=== PATIENT | female | born 1970 | race Caucasian/White ===

== ENCOUNTER 2017-11-28 15:47 | Observation (INO) | payer OTHER ==
[2017-11-28 16:25] LABS: #Lymphocytes 0.6 thou/uL (1.20-3.40); #Monocytes 0.3 thou/uL (0.11-0.59); #Neutrophils 6.5 thou/uL (1.40-6.50); %Basophils 0.5 % (0.0-1.0); %Eosinophils 0.6 % (0.0-10.0); %Lymphocytes 8.2 % (21.0-51.0); %Monocytes 3.7 % (0.0-10.0); %Neutrophils 87.1 % (42.0-75.0); Hemoglobin 10.9 g/dL (12.0-16.0); Mean Corpuscular HGB CONC 31.6 g/dL (32.0-36.0); Mean Corpuscular Hemoglobin 25.5 pg (27.0-31.0); Mean Corpuscular Volume 80.6 fl (81.0-99.0); Mean Platelet Volume 6.7 fL (7.4-10.4); Platelet Count 270 thou/uL (130-400); RBC Distribution Width 17.3 % (11.5-14.5); White Blood Cell (WBC) Count 7.5 thou/uL (4.8-10.8)
[2017-11-28 16:32] LABS: BHCG - Serum Negative (NEGATIVE); Pregs Control Background? CLEAR/WHITE (CLR/WHITE); Pregs Control Bar Appear? YES (CONTROL BAR)
[2017-11-28] MEDS ORDERED: Famotidine/PF 20 mg/2ml Vial ONE (16:32)
[2017-11-28] MEDS ORDERED: Fentanyl 100 MCG/2 ML VIAL ONE ×2 (16:32→18:03)
[2017-11-28] MEDS ORDERED: Ondansetron HCl/PF 4 MG/2 ML Vial ONE ×2 (16:33→18:03)
[2017-11-28 16:42] LABS: ALT (SGPT) 21 U/L (8-55); AST (SGOT) 25 U/L (5-34); Albumin 4.5 g/dL (3.5-5.0); Alkaline Phosphatase 102 U/L (40-150); Anion Gap 14 mmol/L (10-20); BUN (Urea Nitrogen) 8 mg/dL (7.0-18.7); Bilirubin, Total 0.7 mg/dL (0.2-1.2); Calc. Creatinine Clearance 0 mL/min (70-130); Carbon Dioxide 24 mmol/L (22-29); Chloride 103 mmol/L (98-107); Estimated GFR-MDRD 79; Globulin 3.2 g/dL (2.4-3.5); Glucose 94 mg/dL (70-105); Lipase 24 U/L (8-78); Potassium 3.7 mmol/L (3.5-5.1); Protein, Total 7.7 g/dL (6.0-8.3); Sodium 137 mmol/L (136-145)
--- NOTE | 2017-11-28 17:48 | CT ---
CT ABDOMEN NONCONTRAST CT PELVIS NONCONTRAST: (urolithiasis protocol) DATE: 11-28-17 HISTORY: 47-year-old female with left upper quadrant abdominal pain. COMPARISON: 12-13-16 TECHNIQUE: IV injection of iodinated contrast media: none Oral contrast media: none FINDINGS: Other than for urolithiasis, the lack of IV and oral contrast limits the evaluation. The lung bases are clear. There is a small amount of free fluid in the cul-de-sac in the pelvis, whic h is probably physiologic if the patient is premenaupausal. This is similar to the previous CT. There are no renal, ureteral, or bladder calculi. No fat stranding around the appendix. No renal, ureteral , or bladder calculi. Within the limitations of a noncontrast CT, no abnormality is identified involv ing the kidneys, abdominal aorta, urinary bladder, pancreas, adrenals, liver, or spleen. No signs of acute colonic diverticulitis. No pneumoperitoneum. Cholecystectomy clips. There is a new finding of a 4.5 x 3.5 x 3 cm cystic structure in the right adnexa. IMPRESSION: 1. No urolithiasis or obstructive uropathy. 2. 4.5 cm right adnexal cyst. Recommend follow up pelvic and transvaginal ultrasound in 6 weeks (at a different phase in the menstrual cycle). 3. Status post cholecystectomy. MARIA DEL ROSARIO Jack POS: SARAH
[2017-11-28 17:55] LABS: Bilirubin Negative (Negative); Blood, Urine Negative (Negative); Clarity Clear (Clear); Glucose, Urine (Dipstick) Negative (Negative); Leukocyte Negative (Negative); Nitrite Negative (Negative); Protein, Urine (Dipstick) Negative (Neg-Trace); Urobilinogen 0.2 mg/dL (0.2-1.0); pH, Urine 7.5 (5.0-9.0)
[2017-11-28] MEDS ORDERED: diphenhydrAMINE 50 MG/ML VIAL ONE (19:45)
[2017-11-28] MEDS ORDERED: Pantoprazole 40 MG VIAL ONE (19:45)
[2017-11-28] MEDS ORDERED: Metoclopramide HCl 10 MG/2 ML VIAL ONE (20:04)
--- NOTE | 2017-11-28 20:28 | ULT ---
ULTRASOUND PELVIC ULTRASOUND TRANSVAGINAL DOPPLER DUPLEX: HISTORY: 47-year-old female with generalized abdominal and pelvic pain (mostly left upper quadrant abdominal p ain). Large right adnexal cyst found on CT. Rule out ovarian torsion. TECHNIQUE: Transabdominal transducer used to evaluate intrapelvic contents using the urinary bladder as an acous tic window. Endovaginal transducer used to visualize intrapelvic contents in greater detail. Color fl ow Doppler and Pulsed Doppler spectral waveform analysis of ovaries. FINDINGS: Uterus: 9.5 x 5 x 5.6 cm Endometrial stripe: 0.7 cm (7 mm) Right ovary: 5.5 x 3 x 3.5 cm Left ovary: 2.5 x 1.5 x 1.5 cm Uterine leiomyoma (fibroid): Two, one anteriorly and one posteriorly. The posterior one is larger, me asuring approximately 3 x 2.5 x 2.5 cm. Blood flow in both ovaries: Arterial and venous flow demonstrated in both ovaries. Ovarian cyst (defined as 2 cm or greater): Right ovarian cyst measured as 3 x 3.5 x 2.5 cm. (However, the CT demonstrated this cyst to be 4.5 cm in greatest dimension). Free fluid in the cul-de-sac: Minimal in the cul-de-sac. IMPRESSION: 1. Moderately large right ovarian cyst. 2. Blood flow demonstrated in both ovaries by doppler (which does not necessarily rule out low grade or intermittent torsion). Clinical correlation is recommended. 3. At least 2 uterine leiomyomata. MARIA DEL ROSARIO Jack POS: SARAH
[2017-11-28] MEDS ORDERED: Ondansetron HCl/PF 4 MG/2 ML Vial IVP PRN (21:55)
[2017-11-28] MEDS ORDERED: Ondansetron ODT 4 MG TAB SL PRN (21:55)
[2017-11-28 22:17] VITALS: BMI 26.1
[2017-11-28] MEDS: Sodium Chloride 0.9% 1,000 ML IV SCH (22:57)
[2017-11-28] MEDS ORDERED: Fentanyl 100 MCG/2 ML VIAL SLOW IVP PRN (23:32)
[2017-11-29 00:21] LABS: Troponin I Less than 0.010 ng/mL (< 0.028)
[2017-11-29] MEDS: Acetaminophen 325 MG TAB PO PRN ×3 (03:00→19:24)
[2017-11-29 08:38] LABS: Troponin I Less than 0.010 ng/mL (< 0.028)
[2017-11-29] MEDS: Sodium Chloride 0.9% 1,000 ML IV SCH ×2 (08:56→15:30)
[2017-11-29] MEDS ORDERED: Pantoprazole 40 MG VIAL IVP SCH (09:00)
--- NOTE | 2017-11-29 12:28 | OP ---
DATE OF PROCEDURE: 11/29/2017 PROCEDURE: Esophagogastroduodenoscopy. PREOPERATIVE DIAGNOSIS: Epigastric pain in the setting of chronic VELAZCO-2 inhibitor use and steroids. OPERATIVE NOTE: Informed consent was obtained from the patient. She was sedated with total intraven ous anesthesia. The bite block was placed and the endoscope was advanced easily to the second portio n of the duodenum and retroflexion was performed in the stomach. The esophagus was normal. The Z-li ne appeared normal. There was a small 1 cm hiatal hernia. The stomach was normal including retrofle xed views. The pylorus and first and second portions of the duodenum were normal. IMPRESSION: 1. Small 1 cm hiatal hernia. 2. Otherwise normal esophagogastroduodenoscopy. RECOMMENDATIONS: 1. Continue proton pump inhibitor for now. 2. Advance her diet. 3. If the pain worsens again, then plan CT of the abdomen and pelvis with contrast. 4. Monitor for recurrent similar symptoms after her next dose of methotrexate.
--- NOTE | 2017-11-29 12:30 | CON ---
DATE OF CONSULTATION: 11/29/2017 GASTROENTEROLOGY CONSULTATION NOTE CHIEF COMPLAINT: Abdominal pain. HISTORY OF PRESENT ILLNESS: Ms. Tang is a 47-year-old woman who woke up at 3:00 yesterday morning with acute onset burning the cramping epigastric to left upper quadrant abdominal pain. She did hav e several episodes of nausea and vomiting, but no obvious hematemesis. She has had no black stools o r red stools. She did have an episode of diarrhea yesterday, but this has not been an ongoing issue. The pain persists in the epigastric region; however, this has improved over the last day. She had a similar episode of pain she reported last year. She currently attributes that to having been on Im uran; however, review of the notes by Dr. Lal from 11/2016 indicates that her pain was improving at that time with avoidance of Celebrex and with treatment with proton pump inhibitor. She has since b een started on meloxicam and prednisolone. More recently, about a month ago, she started taking meth otrexate. She took the methotrexate on Tuesday, which was the day before the onset of her symptoms wh en she woke up again Tuesday morning early. On presentation to the ER, she had blood work done which revealed a normal white blood cell count and normal liver tests and normal lipase. She had a CT scan performed without contrast which was negative. Her weight has been stable. She did see Dr. Horn for some chest pain. She has had some shortness of breath from walking about a block. PET scan was recommended by Dr. Horn, but her insurance did not cover this apparently. PAST MEDICAL HISTORY: Lupus and chronic iron deficiency anemia. She underwent EGD and colonoscopy angi Lal in 10/2016. The EGD showed some mild gastritis. Biopsies were unremarkable. An irregul ar Z-line was noted and biopsies did show some possible focal metaplasia but obvious franc Alvarez's was not identified endoscopically. Duodenal biopsies were normal. The colonoscopy revealed small in ternal hemorrhoids, but otherwise was normal to the terminal ileum. She underwent capsule endoscopy on 01/31/2017 which revealed normal small bowel mucosa. Hypertension, hypothyroidism, ovarian cyst, and kidney stones. PAST SURGICAL HISTORY: Cholecystectomy, upper and lower endoscopy, back surgery. FAMILY HISTORY: Positive for stomach cancer in her great-grandmother. SOCIAL HISTORY: No alcohol, tobacco or drugs. ALLERGIES: AZATHIOPRINE, BUTORPHANOL, CODEINE, JEFFERY, KETOROLAC, MEPERIDINE, MORPHINE, COMPAZINE, P ROMETHAZINE, SECOBARBITAL, and IV IRON. MEDICATIONS: At home prior to admission, hydroxychloroquine, folic acid, meloxicam 7.5 mg twice moose y, levothyroxine, methotrexate 15 mg weekly, methylprednisolone 4 mg daily, and leucovorin. REVIEW OF SYSTEMS: Negative x10 systems reviewed except as stated in history of present illness. Kathy johnson does have joint pain in her hands and back. PHYSICAL EXAMINATION: VITAL SIGNS: Temperature 99.2, pulse 68, blood pressure 107/57. GENERAL: She is in no acute distress, alert and oriented x3. HEENT: Eyes have no scleral icterus. Oropharynx is clear, without lesions. NECK: No cervical or supraclavicular lymphadenopathy. LUNGS: Clear to auscultation bilaterally. HEART: Regular rate and rhythm without murmur. ABDOMEN: Soft. She is tender in the epigastric region without guarding. Bowel sounds are present. EXTREMITIES: No lower extremity edema. NEUROLOGIC: Cranial nerves are grossly intact. LABORATORY DATA: Creatinine 0.78, bilirubin 0.7, AST 25, ALT 21, alkaline phosphatase 102, albumin 4 .5, lipase 24. White blood cell count 7.5, hemoglobin 10.9, MCV 80.6, platelets 270. IMPRESSION: 1. Acute onset epigastric pain associated with nausea and vomiting yesterday and one episode of diar alfonso yesterday. An infectious gastroenteritis is possible given nausea and vomiting, and diarrhea. These symptoms are similar to the symptoms she had last year which she attributed to azathioprine. S he just started methotrexate a month ago and she took the methotrexate the day before the onset of sy mptoms. She is concerned that the methotrexate could be a source for these symptoms as well. 2. Given the chronic use of Anderson 2 inhibitor and prednisolone, peptic ulcer needs to be ruled out. S he did have a CT scan on presentation; however, this was without contrast and if the pain persists, daylin johnson may need to repeat a CT. Her lipase is normal. Her white blood cell count is normal and her LFTs are normal. She has had a prior cholecystectomy. 3. History of chronic iron deficiency anemia. The EGD and colonoscopy including duodenal biopsies a nd gastric biopsies were negative last year. Small bowel capsule endoscopy was negative last year. 4. Irregular Z-line with biopsies showing some focal metaplasia. We will evaluate for obvious signs of Alvarez's today and rebiopsy if indicated. RECOMMENDATIONS: 1. EGD. 2. Proton pump inhibitor. 3. Further workup pending endoscopic findings.
[2017-11-29] MEDS ORDERED: Ondansetron HCl/PF 4 MG/2 ML Vial IVP PRN (14:07)
[2017-11-29] MEDS ORDERED: HYDROcodone/Acetaminophen 5/325 mg Tablet PO PRN (14:07)
[2017-11-29] MEDS ORDERED: methylPREDNISolone 4 mg Tablet PO PRN (14:18)
[2017-11-29] MEDS ORDERED: Lidocaine 1% PF 5 ML VIAL ONE (14:53)
[2017-11-29] MEDS ORDERED: Propofol 200 MG/20 ML VIAL ONE (14:53)
--- NOTE | 2017-11-29 15:05 | HP ---
DATE OF ADMISSION: 11/29/2017 CHIEF COMPLAINT: Abdominal pain. HISTORY OF PRESENT ILLNESS: This is a 47-year-old young white female with a known history of systemi c lupus erythematosus diagnosed a few months ago and was started on Plaquenil by her primary care jose beal, the patient also had a severe vaginal bleeding in September and she was seen by a sas developer analyst, Dr. Tran who started her on estrogen medication initially and her period stopped since then and she did not have any periods. Last night, early in the morning around 3:00 a.m. she woke up with severe abdominal pain in the mid epigastrium and also in the lower abdomen associated with severe nausea and vomiting. The patient was unable to swallow. Patient was unable to keep down any fluids. So, GI w as consulted who did the EGD looking for any evidence of upper GI problem, but did not show any evide nce of ulcers or any bleeding was noted. The patient was seen on the floor, she was alert and orient ed, but was in severe pain of 8 on 10 intensity in the mid epigastrium and also in the lower abdomen. She also complains of cramps in the right loin area and was tender on palpation. She had a CT of t he abdomen and pelvis which showed evidence of 4.5 cm adnexal mass and also had a pelvic ultrasound d one in the ER which did confirm the adnexal mass at right ovarian cyst of the largest dimension being 4.5 cm. She also had a leiomyomata which are fibroids on the uterus. PAST MEDICAL HISTORY: 1. Systemic lupus erythematosus. 2. History of anemia. PAST SURGICAL HISTORY: The patient had cholecystectomy in the past. SOCIAL HISTORY: The patient is a nonsmoker. No history of alcohol, no history of illicit drug use. REVIEW OF SYSTEMS: All 12 systems reviewed with the patient thoroughly and found to be negative at t his time except what is described in HPI. Constitutional: Weight loss or gain, sense of well-being, ability to conduct usual activities, exerc ise tolerance. Skin/Breast: Rash, itching, changes in hair growth or loss, nail changes, breast lum ps, tenderness, swelling, nipple discharge. Eyes: Vision, double vision, tearing, blind spots, pain . ENT/Mouth: Headaches (location, time of onset, duration, precipitating factors), vertigo, lighthe adedness, injury. Vision, double vision, tearing, blind spots, pain, nose bleeding, colds, obstructio n, discharge, dental difficulties, gingival bleeding, dentures, neck stiffness, pain, tenderness, mas ses in thyroid or other areas. Cardiovascular: Precordial pain, substernal distress, palpitations, syncope, dyspnea on exertion, orthopnea, nocturnal paroxysmal dyspnea, edema, cyanosis, hypertension, heart murmurs, varicosities, phlebitis, claudication. Respiratory: Pain, shortness of breath, whee zing, stridor, cough, hemoptysis, fever or night sweats. Gastrointestinal: Poor appetite, dysphagia , indigestion, abdominal pain, heartburn, eructation, nausea, vomiting, hematemesis, jaundice, consti pation, or diarrhea, abnormal stools (iram-colored, tarry, bloody, greasy, foul smelling), flatulence , hemorrhoids, recent changes in bowel habits. Genitourinary: Urgency, frequency, dysuria, nocturia , hematuria, polyuria, oliguria, unusual (or change in) color of urine, stones, hesitancy, change in size of stream, dribbling, acute retention or incontinence, libido, potency. Musculoskeletal: Pain, swelling, redness or heat of muscles or joints, limitation, of motion, muscular weakness, atrophy, c ramps. Neurologic/Psychiatric: Convulsions, paralyses, tremor, incoordination, paresthesias, diffic ulties with memory of speech, sensory or motor disturbances, or muscular coordination (ataxia, tremor ), emotional problems, anxiety, depression, previous psychiatric care, unusual perceptions, hallucina tions. Allergy/Immunologic: Skin rash, anemia, bleeding tendency, polydipsia, polyuria, intolerance to heat or cold. ALLERGIES: AZATHIOPRINE, BUTORPHANOL, CODEINE, JEFFERY and KETOROLAC. HOME MEDICATIONS: 1. Folic acid 1 mg p.o. b.i.d. 2. Hydroxychloroquine 200 mg p.o. b.i.d. 3. Leucovorin 5 mg. 4. Levothyroxine 150 mcg p.o. daily. 5. Meloxicam 7.5 mg p.o. b.i.d. 6. Methotrexate 15 mg p.o. daily. 7. Methylprednisolone 4 mg p.o. daily. PHYSICAL EXAMINATION: VITAL SIGNS: Blood pressure is 119/59, heart rate is 67, respiratory rate 18, saturation 98%. GENERAL: The patient is moderately built, moderately nourished. She appears to be in acute distress with abdominal pain. Otherwise, she is alert and oriented. HEENT: Atraumatic, normocephalic, PERRLA. Extraocular muscles were intact. Oropharynx is pink and moist. CARDIOVASCULAR: S1, S2 normal. No murmurs, rubs or gallops. LUNGS: Bilateral air entry was equal. No wheezing, no crackles. ABDOMEN: Soft, nontender, no guarding, no rebound tenderness. Bowel sounds normal. MUSCULOSKELETAL: No calf tenderness. No pedal edema, no joint tenderness, no joint swelling. SKIN: No sinus erythema, no rash, no pallor. NEUROLOGIC: Cranial examination II-XII intact. No focal deficits were noted. PSYCHIATRIC: No signs of suicidal ideation. No signs of shahla. LABORATORY DATA: WBC 7.5, hemoglobin is 10.1, hematocrit is 34.6, and platelets 270. Sodium 137, po tassium 3.7, chloride 103, bicarbonate is 24, BUN is 8, creatinine 0.78. IMAGING: Ultrasound of the abdomen was done showing evidence of right adnexal mass of 4.5 cm ovarian cyst, moderately enlarged size. CT of the abdomen did confirm a 4.5 cm adnexal mass. ASSESSMENT: 1. Acute right ovarian cyst pain, likely torsion. 2. History of systemic lupus erythematosus. 3. Intractable nausea and vomiting. 4. Moderate dehydration. 5. History of fibroid uterus. PLAN: 1. The plan is to consult LONG TERM CARE PHARMACIST hospitalist at this time for further evaluation of her right adnexa l mass. Patient's pain is uncontrollable and she is 7 out of 10 intensity pain and unable to keep an ything down. At this time, she is very dehydrated. We will continue the patient with normal saline at 75 mL an hour and controlled the pain with Mcgrady. The patient has multiple drug allergies includi ng MORPHINE and TORADOL, so unable to give her pain medications at this time. 2. The patient had an EGD, did not show any evidence of ulcers. According to the nurse, we will cece t for the GI report. We will start the patient on Carafate 1 gram p.o. daily. Patient is on oral st eroids and also NSAIDs as possibly could have her gastritis contributing to the epigastric pain. 3. The patient has history of systemic lupus, we will continue the patient on hydroxychloroquine and methotrexate in her usual home dose. 4. The patient is moderately dehydrated. We will continue the fluids as stated above. 5. DVT prophylaxis with Lovenox 40 mg subcutaneously. I spent 75 minutes with this patient.
[2017-11-29] MEDS: Sucralfate 1 GM TAB PO SCH ×2 (16:37→20:26)
[2017-11-29] MEDS: Metoclopramide HCl 10 MG/2 ML VIAL IVP PRN (18:21)
[2017-11-29] MEDS: Meloxicam 7.5 MG TAB PO SCH (20:26)
[2017-11-29] MEDS: Hydroxychloroquine Sulfate 200 MG TAB PO SCH (20:26)
[2017-11-29] MEDS: Folic Acid 1 MG TAB PO SCH (20:26)
[2017-11-29] MEDS ORDERED: Cyclobenzaprine 10 MG TAB PO PRN (21:39)
[2017-11-29] MEDS: Famotidine 40 MG/4 ML VIAL SLOW IVP SCH (21:53)
--- NOTE | 2017-11-29 23:12 | CON ---
DATE OF CONSULTATION: 11/29/2017 TIME OF SERVICE: 04:30 p.m. CONSULTING PHYSICIAN: Dr. Rashard Weir, internal medicine. CHIEF COMPLAINT: Abdominal pain. HISTORY OF PRESENT ILLNESS: This is a 47-year-old female who presented to the emergency department with a sudden onset of epigastric and left upper quadrant pain starting at 3 in the morning. She had associated nausea and vomiting and was admitted to the hospital. She had an EGD, which was essentially negative. After CT scan was performed and showed a 4-cm left adnexal mass, transvaginal ultrasound was performed. This confirmed approximately 3-cm left ovarian cyst. Both ovaries showed good blood flow. However, since pain, she was experiencing could not be explained by her EGD, BARK SC[facility]ER was consulted. Patient reports a history of regular monthly cycles up until August, at which time, she had a prolonged cycle. She saw Dr. Tran in September who put her on medication make her stop bleeding and she has not had a period since. She reports that her pain is much improved since her admission; however, she still has some lower abdominal crampiness. She has not received any IV narcotics due to allergies, but reported her pain significantly improved with the use of Reglan, Benadryl, and Zofran. She denies any changes in bowel habits or urination. REVIEW OF SYSTEMS: Negative for head, eyes, ears, nose, throat, cardiovascular , respiratory, GI, , neuro, psych, musculoskeletal, skin, or constitutional symptoms other than mentioned above. PAST MEDICAL HISTORY: 1. Systemic lupus erythematosus, diagnosed about a year ago. 2. History of anemia. PAST SURGICAL HISTORY: 1. Cholecystectomy. 2. Hand surgery. 3. Leg surgery. MEDICATIONS: Reviewed. ALLERGIES: 1. AZATHIOPRINE. 2. BUTORPHANOL. 3. CODEINE causes itching. 4. JEFFERY causes itchy mouth. 5. TORADOL causes nausea and vomiting. 6. DEMEROL causes anaphylaxis. 7. MORPHINE causes anaphylaxis. 8. COMPAZINE causes nausea and vomiting. 9. PHENERGAN causes nausea and vomiting. 10. SECOBARBITAL causes oversedation. 11. IV IRON caused shortness of breath, coughing, flushing, nausea, vomiting. SOCIAL HISTORY: Negative for tobacco, alcohol, or drug abuse. FAMILY HISTORY: Noncontributory. PHYSICAL EXAMINATION: VITAL SIGNS: Temperature 98.9, pulse 70, respiratory rate 15, O2 saturation 100 % on room air, blood pressure 125/61. GENERAL: Awake, alert, in no acute distress, but appears uncomfortable. CHEST: Nonlabored breathing. ABDOMEN: Soft, nondistended. No guarding or rebound. No masses palpable. EXTREMITIES: No edema. IMAGING: Pelvic ultrasound revealed a right ovarian cyst measuring 3 x 3.5 x 2.5 cm. Arterial and venous flow demonstrated in both ovaries. Two uterine fibroids. LABORATORY DATA: WBC 7.5, hemoglobin 10.9, hematocrit 34.6, platelets 270,000. Chemistry within normal limits. Urine within normal limits. ASSESSMENT AND PLAN: A 47-year-old with epigastric and left upper quadrant pain with an unknown cause. It was thought that it could be caused by her lupus medications, which I would lean towards at this point. The cyst in her ovary is not very large and is unlikely to be causing any kind of torsion. There is no acute indication for surgery. The patient can follow up in Dr. Tran clinic in 6 weeks for repeat ultrasound to look for resolution of her cyst. I explained all of this to the patient and she voiced understanding. SEAN
[2017-11-30] MEDS: Sodium Chloride 0.9% 1,000 ML IV SCH (02:22)
[2017-11-30] MEDS: Metoclopramide HCl 10 MG/2 ML VIAL IVP PRN (03:11)
[2017-11-30 04:55] LABS: #Eosinphils 0.1 thou/uL (0.0-0.7); #Lymphocytes 0.7 thou/uL (1.20-3.40); #Monocytes 0.4 thou/uL (0.11-0.59); #Neutrophils 1.9 thou/uL (1.40-6.50); %Basophils 0.7 % (0.0-1.0); %Eosinophils 1.7 % (0.0-10.0); %Lymphocytes 23.8 % (21.0-51.0); %Monocytes 12.1 % (0.0-10.0); %Neutrophils 61.7 % (42.0-75.0); Hemoglobin 9.5 g/dL (12.0-16.0); Mean Corpuscular HGB CONC 32.7 g/dL (32.0-36.0); Mean Corpuscular Hemoglobin 27.8 pg (27.0-31.0); Mean Platelet Volume 6.6 fL (7.4-10.4); Platelet Count 213 thou/uL (130-400); RBC Distribution Width 16.9 % (11.5-14.5); White Blood Cell (WBC) Count 3.1 thou/uL (4.8-10.8)
[2017-11-30 04:56] LABS: Anion Gap 8 mmol/L (10-20); BUN (Urea Nitrogen) 7 mg/dL (7.0-18.7); Calc. Creatinine Clearance 141 mL/min (70-130); Calcium 8.2 mg/dL (7.8-10.44); Carbon Dioxide 25 mmol/L (22-29); Chloride 107 mmol/L (98-107); Estimated GFR-MDRD 90; Glucose 104 mg/dL (70-105); Potassium 3.8 mmol/L (3.5-5.1); Sodium 136 mmol/L (136-145)
[2017-11-30] MEDS ORDERED: Levothyroxine 150 MCG TAB PO SCH (06:00)
[2017-11-30] MEDS ORDERED: Enoxaparin Sodium 40 MG/0.4 ML SYRINGE SC SCH (09:00)
[2017-11-30] MEDS: Hydroxychloroquine Sulfate 200 MG TAB PO SCH (09:21)
[2017-11-30] MEDS: Meloxicam 7.5 MG TAB PO SCH (09:21)
[2017-11-30] MEDS: Folic Acid 1 MG TAB PO SCH (09:21)
[2017-11-30] MEDS: Famotidine 40 MG/4 ML VIAL SLOW IVP SCH (09:26)
[2017-11-30] MEDS: Acetaminophen 325 MG TAB PO PRN (09:26)
[2017-11-30] MEDS: Sucralfate 1 GM TAB PO SCH ×2 (09:26→12:51)
--- NOTE | 2017-11-30 14:05 | DIS ---
DATE OF ADMISSION: 11/29/2017 DATE OF DISCHARGE: 11/30/2017 ADMITTING DIAGNOSES: Intractable nausea and vomiting. DISCHARGE DIAGNOSES: Intractable nausea and vomiting. SECONDARY DIAGNOSES: 1. Possible acute gastritis. 2. History of systemic lupus erythematosus. 3. Right ovarian cyst. 4. Moderate dehydration. 5. Fibroid uterus. CONSULTANTS INVOLVED IN THIS CARE: Gynecology, Dr. Coby Davis and GI, Dr. Alfred Suarez. HISTORY OF PRESENT ILLNESS AND HOSPITAL COURSE: In brief, this is a 47-year-old white female who has a known history of systemic lupus erythematosus, on prednisolone and methotrexate. The patient comp lained of sudden onset of abdominal pain for the past few days associated with severe nausea and vomi ting. The patient was initially seen by GI for intractable nausea and vomiting, and EGD did not show any evidence of gastric erosions, but there was evidence of possible gastritis. The patient was adv ised to be continued on Protonix and the patient was started on Carafate, which did help her pain acc ording to her. The patient was also having lower abdominal pain and cramps and a CT of abdomen and p juan jose showed evidence of a right ovarian cyst, which was 4.5 cm, so Gynecology Hospitalist was patience cervantes who reassured the patient and advised to follow up with Dr. Tran in 1-2 weeks. The patient's stephanie n was controlled on the day of discharge; she was well hydrated and was discharged home in stable con dition. PHYSICAL EXAMINATION: On date of discharge: VITAL SIGNS: Blood pressures are 107/59, heart rate is 76, respirations 18 and saturation 99%. GENERAL: The patient is moderately built and moderately nourished. CARDIOVASCULAR: S1 and S2 normal. No murmurs, rubs or gallops. LUNGS: Bilateral air entry was equal. No wheezing, no crackles. ABDOMEN: Soft and nontender. No guarding, no rebound tenderness. Bowel sounds normal. MUSCULOSKELETAL: No calf tenderness. No pedal edema. No joint tenderness. No joint swelling. SKIN: No cyanosis, no erythema, no rash, no pallor. CENTRAL NERVOUS SYSTEM: Cranial nerve examination II-XII intact. No focal deficits were noted. LABORATORY DATA: WBC is 3.1, hemoglobin is 9.5 and hematocrit is 28.9. Sodium is 136, potassium 3.8 , chloride is 107, bicarbonate is 25, BUN is 7 and creatinine 0.7. HOME MEDICATIONS: Folic acid 1 mg p.o. b.i.d., hydroxychloroquine 200 mg p.o. b.i.d. leucovorin 5 mg p.o. daily, levothyroxine 150 mg p.o. daily, meloxicam 7.5 mg p.o. b.i.d., methotrexate 50 mg p.o. d aily and methylprednisolone 4 mg p.o. daily. NEW MEDICATIONS: Carafate 1 gram p.o. before meals and at bedtime. DISCHARGE INSTRUCTIONS: 1. Continue with the above medications. 2. Advised to take meloxicam and prednisolone with food to avoid gastritis. 3. The patient was advised to follow up with Dr. Tran in 1-2 weeks to follow up on the right ovarian cyst. 4. Continue the general diet. I spent 35 minutes with this patient.
[2017-11-30 14:12] VITALS: BP 107/59; TEMP 98.7
[2017-12-04] MEDS ORDERED: Methotrexate Sodium 2.5 MG TAB PO SCH (21:00)
[2017-12-05] MEDS ORDERED: Leucovorin Calcium 5 MG TAB PO SCH (21:00)
== END 2017-11-30 13:58 | disposition home or self-care (01) ==
LOC: SCSER 15:47 → 2SW 21:11
PROVIDERS: ADMIT Internal Medicine Infectious Disease; ATTEND Internal Medicine Infectious Disease
PROC: 0DJ08ZZ Inspection of Upper Intestinal Tract, Via Natural or Artificial Opening Endoscopic (ICD-10-PCS; principal; 2017-11-29)
DX: R10.13 Epigastric pain (principal); K44.9 Diaphragmatic hernia without obstruction or gangrene; M32.9 Systemic lupus erythematosus, unspecified; D50.9 Iron deficiency anemia, unspecified; I10 Essential (primary) hypertension; E03.9 Hypothyroidism, unspecified; E86.0 Dehydration; R11.2 Nausea with vomiting, unspecified; N83.201 Unspecified ovarian cyst, right side; D25.9 Leiomyoma of uterus, unspecified; Z79.1 Long term (current) use of non-steroidal anti-inflammatories (NSAID); Z79.52 Long term (current) use of systemic steroids; Z79.899 Other long term (current) drug therapy; Z88.5 Allergy status to narcotic agent; Z88.8 Allergy status to other drugs, medicaments and biological substances; Z91.018 Allergy to other foods; Z90.49 Acquired absence of other specified parts of digestive tract; Z98.890 Other specified postprocedural states; Z87.442 Personal history of urinary calculi
CPT/HCPCS: 36415; 74176; 76856; 80048; 80053; 81003; 83605; 83690; 84484; 84703; 85025; 96361; 96365; 96375; 96376; C9113; G0378; J1200; J1650; J2001; J2405; J2704; J2765; J3010; S0028

== ENCOUNTER 2018-08-31 13:32 | Day surgery (SDC) | payer OTHER ==
[2018-08-30 15:12] VITALS: BMI 25.0
[2018-08-31] MEDS ORDERED: PROPOFOL 200 MG/20 ML VIAL ONE (16:35)
--- NOTE | 2018-08-31 22:41 | OP ---
DATE OF PROCEDURE: 08/31/2018 TITLE OF PROCEDURE: Esophagogastroduodenoscopy with biopsy. PREPROCEDURE DIAGNOSES: 1. Intractable recurring epigastric pain. 2. History of hiatal hernia. POSTPROCEDURE DIAGNOSES: 1. Exam to second portion of duodenum. 2. Small sliding 2 cm hiatal hernia, biopsied. 3. Mild patchy erythema of the gastric body and antrum, biopsied. 4. Normal duodenum, biopsied. 5. No evidence of peptic ulcer disease. PROCEDURE IN DETAIL: Written informed consent was obtained. The patient was brought to the endoscopy suite. Total intravenous anesthesia was provided by Dr. Renato Campos. The patient was placed in the left lateral decubitus position. A bite block was inserted into the mouth. When adequate sedation was achieved, a Pentax video diagnostic gastroscope was introduced into the oral cavity and the esophagus was carefully intubated. The gastroscope was advanced under direct visualization to the second portion of the duodenum. Endoscopic findings revealed a small sliding hiatal hernia about 2 cm in length. There is no evidence of Alvarez's esophagus or esophageal ulcer. The Z-line at 37 cm was mildly irregular and biopsies were obtained for histology. The stomach was then entered and carefully examined. This included a retroflex view of the cardia and fundus. Mild patchy erythema was noted in the distal body and antrum. Biopsies were obtained for histology. No gastric ulcer was identified. The duodenum from the bulb to the second portion appeared grossly normal. Given her significant previous history, biopsies were obtained in the proximal duodenum for histology. The stomach was then decompressed. Thus, the endoscope was completely removed from the patient. She was transferred to the Day Stay Surgery Area for postprocedure monitoring. There were no immediate complications. RECOMMENDATIONS: 1. Await pathology results. 2. Ask the patient to call me in one week for pathology results. 3. Resume previous medications. 4. Low-fat diet. 5. We will speak to the patient about the trial of Levsin sublingual 0.125 mg p.o. q.4 hours p.r.n. abdominal pain. 6. We would also consider acid suppressive therapy for 4 to 6 weeks and we will discuss this with the patient prior to her discharge. Job ID: [id number]
== END 2018-08-31 16:31 | disposition home or self-care (01) ==
LOC: SDC 13:32
PROVIDERS: ATTEND Internal Medicine Gastroenterology
PROC: 0DB58ZX Excision of Esophagus, Via Natural or Artificial Opening Endoscopic, Diagnostic (ICD-10-PCS; principal; 2018-08-31)
PROC: 0DB68ZX Excision of Stomach, Via Natural or Artificial Opening Endoscopic, Diagnostic (ICD-10-PCS; principal; 2018-08-31)
PROC: 0DB98ZX Excision of Duodenum, Via Natural or Artificial Opening Endoscopic, Diagnostic (ICD-10-PCS; principal; 2018-08-31)
DX: K20.9 Esophagitis, unspecified (principal); K31.9 Disease of stomach and duodenum, unspecified; K44.9 Diaphragmatic hernia without obstruction or gangrene; Z88.5 Allergy status to narcotic agent; Z88.8 Allergy status to other drugs, medicaments and biological substances; Z91.018 Allergy to other foods; Z79.1 Long term (current) use of non-steroidal anti-inflammatories (NSAID); Z79.899 Other long term (current) drug therapy
CPT/HCPCS: 88305; 88312; 88313; J2704

== ENCOUNTER 2019-01-08 12:10 | Outpatient (CLI) | payer OTHER ==
--- NOTE | 2019-01-09 07:50 | MMO ---
Bilateral MAMMO Bilat Screen [facility]. CLINICAL HISTORY: Patient is 48 years old and is seen for screening. The patient has no family history of breast cancer. The patient has no personal history of cancer. VIEWS: The views performed were: bilateral craniocaudal with tomosynthesis and bilateral mediolateral oblique with tomosynthesis. FILMS COMPARED: The present examination has been compared to prior imaging studies performed at [facility] on 05/27/2008, 05/15/2010 and 05/10/2014. MAMMOGRAM FINDINGS: There are scattered fibroglandular densities. There are no suspicious masses, suspicious calcifications, or new areas of architectural distortion. IMPRESSION: THERE IS NO MAMMOGRAPHIC EVIDENCE OF MALIGNANCY. A ROUTINE FOLLOW-UP MAMMOGRAM IN 1 YEAR IS RECOMMENDED. THE RESULTS OF THIS EXAM WERE SENT TO THE PATIENT. ACR BI-RADS Category 1 - Negative MAMMOGRAPHY NOTE: 1. A negative mammogram report should not delay a biopsy if a dominant of clinically suspicious mass is present. 2. Approximately 10% to 15% of breast cancers are not detected by mammography. 3. Adenosis and dense breasts may obscure an underlying neoplasm.
== END 2019-01-08 12:11 | disposition home or self-care (01) ==
LOC: BICMAMMO 12:10
PROVIDERS: ATTEND Family Medicine
DX: Z12.31 Encounter for screening mammogram for malignant neoplasm of breast (principal)
CPT/HCPCS: 77063; 77067

== ENCOUNTER 2019-10-01 15:50 | Outpatient (CLI) | payer OTHER ==
--- NOTE | 2019-10-01 17:00 | MRI ---
MR OF THE RIGHT KNEE WITHOUT CONTRAST INDICATION: History of patellofemoral pain syndrome TECHNIQUE: Axial and coronal PD fat sat, sagittal T2 fat sat, sagittal PD turbo spin echo and T1 tan nal images were obtained of the right knee. COMPARISON: None. FINDINGS: Joint effusion: None. Semimembranosus-medial gastrocnemius popliteal cyst: None. Ligaments: The ACL, PCL, MCL and LCLC are intact. Extensor mechanism: Intact. Menisci: Intact. Articular cartilage: There is a 2 mm focus of full-thickness delamination involving the lateral cruz lar facet with underlying subchondral edema. There is a 2 mm near full-thickness articular cartilage fissure involving the median patellar ridge. There is moderate chondrosis involving the med ial patellar facet. There are small marginal osteophytes affecting the major compartments of the right knee. There is mild diffuse chondrosis involving the femoral tibial compartments without eviden ce of a focal full-thickness defect. Osseous structures: Normal marrow signal. Popliteus and IT band: Normal. IMPRESSION: 1. 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 2. The menisci are intact. 3. The ACL, PCL, MCL and lateral collateral ligaments are intact.
== END 2019-10-01 15:51 | disposition home or self-care (01) ==
LOC: SCSMRI 15:50
PROVIDERS: ATTEND Orthopaedic Surgery
DX: M22.2X1 Patellofemoral disorders, right knee (principal); M17.11 Unilateral primary osteoarthritis, right knee

== ENCOUNTER 2019-12-10 12:39 | Outpatient (CLI) | payer OTHER ==
--- NOTE | 2019-12-10 14:46 | CT ---
CT ABDOMEN AND PELVIS WITHOUT CONTRAST: Date: 12/10/2019 COMPARISON: 12/13/2016. HISTORY: Left flank pain. History of kidney stones. TECHNIQUE: Multiple contiguous axial images were obtained in a CT of the abdomen and pelvis without contrast. Sa gittal and coronal reformats were performed. FINDINGS: The patient is status post cholecystectomy. No calcifications seen in either kidney or ureter. Phlebo liths are seen in the pelvis that are external to the ureters. The liver, adrenal glands, spleen, and pancreas are unremarkable, although evaluation is limited with out IV contrast. There is a small amount of free fluid and stranding change in the pelvis. The uterus has been removed . This stranding change is surrounding the sigmoid colon. No obvious diverticula are seen in the colo n. The small bowel is normal in caliber. The appendix is normal. No abdominal or pelvic lymphadenopathy seen. The osseous structures and visualized inferior thorax ar e unremarkable. IMPRESSION: There is subtle inflammatory change surrounding the sigmoid colon. This is nonspecific. This could re present an infectious colitis or inflammatory colitis. POS: [facility]
== END 2019-12-10 12:40 | disposition home or self-care (01) ==
LOC: BICCT 12:39
PROVIDERS: ATTEND Urology
DX: N20.0 Calculus of kidney (principal); K63.89 Other specified diseases of intestine
CPT/HCPCS: 36415; 74176; 80048; 81001; 85025

== ENCOUNTER 2019-12-26 12:25 | Outpatient (CLI) | payer OTHER ==
--- NOTE | 2019-12-26 16:32 | MRI ---
MRI RIGHT WRIST 12/26/19 PROVIDED CLINICAL HISTORY: Pain. FINDINGS: The dorsal extensor and volar flexor tendons demonstrate an intact MR appearance. The TFC complex, lunotriquetral, and scapholunate ligaments appear intact. There is marrow edema involving the ulnar aspects of the lunate, somewhat focally at its proximal/uln ar margin. Regional marrow signal appears otherwise normal. Alignment appears anatomic. Joint spaces appear preserved. The amount of fluid within the mid carpal, radiocarpal and distal radioulnar joints appears physiolog ic. The courses of the regional major neurovascular structures appear unremarkable. IMPRESSION: Focal marrow edema at the ulnar-proximal aspects of the lunate, which can be seen in the setting of u lnar-carpal abutment. 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 POS: [facility]
== END 2019-12-26 12:26 | disposition home or self-care (01) ==
LOC: SCSMRI 12:25
PROVIDERS: ATTEND Orthopaedic Surgery
DX: M25.531 Pain in right wrist (principal); R60.0 Localized edema

== ENCOUNTER 2020-08-25 07:02 | Outpatient (CLI) | payer OTHER ==
[2020-08-26 06:31] LABS: SARS-CoV-2 MS2 Positive; SARS-CoV-2 N Gene Negative; SARS-CoV-2 S Gene Negative; SARS-CoV-2 by NAA Not Detected (NotDetected); SARS-CoV-2 orf1ab Negative
== END 2020-08-25 07:03 | disposition home or self-care (01) ==
LOC: EEVIPCON 07:02 → LABBT 07:02
PROVIDERS: ATTEND Internal Medicine Gastroenterology
DX: Z01.812 Encounter for preprocedural laboratory examination (principal); K57.32 Diverticulitis of large intestine without perforation or abscess without bleeding; R10.9 Unspecified abdominal pain; Z20.828 Contact with and (suspected) exposure to other viral communicable diseases
CPT/HCPCS: 87635; U0003

== ENCOUNTER 2020-08-28 05:58 | Day surgery (SDC) | payer OTHER ==
[2020-08-27 10:18] VITALS: BMI 26.3
--- NOTE | 2020-08-28 09:09 | OP ---
DATE OF PROCEDURE: 08/28/2020 PRIMARY CARE PHYSICIAN: Dr. Pompa. TITLE OF PROCEDURE: Colonoscopy. PREPROCEDURE DIAGNOSIS: Left lower quadrant abdominal pain, treated for diverticulitis. POSTPROCEDURE DIAGNOSES: 1. Exam to distal terminal ileum; good bowel preparation. 2. Normal terminal ileum. 3. Normal colon. 4. Hypertrophied anal papilla. 5. Small internal hemorrhoids. 6. No polyp seen. 7. Otherwise normal colonoscopy. DESCRIPTION OF PROCEDURE: Written informed consent was obtained. Upon completion of the EGD, the patient was repositioned for the colonoscopy. Total intravenous anesthesia was administered by Dr. Jesus Harper. The patient was placed in the left lateral decubitus position and a digital rectal exam was performed that was unremarkable. A Pentax video colonoscope was inserted through the anal canal and advanced under direct visualization to the cecum. Position in the cecum was verified by clear identification of the appendiceal orifice and the ileocecal valve. The quality of the bowel preparation was good. Endoscopic findings revealed normal distal terminal ileum. The colon was then examined as the colonoscope was slowly withdrawn from the cecum. Vascular pattern and haustral folds appeared normal. No diverticulum, colitis, or polyp was identified. Haustral folds were normal. In the rectum, a retroflexed view demonstrated small internal hemorrhoids and hypertrophied anal papilla. The hemorrhoids were nonbleeding. The colon was decompressed as the colonoscope was completely removed from the patient. She was then transferred to the Day Stay Surgery area for postprocedure monitoring. There were no immediate complications. RECOMMENDATIONS: 1. Initiate Citrucel or Benefiber 1 to 2 teaspoons in water daily. 2. Use hyoscyamine 0.125 mg p.o. q.4 to 6 hours p.r.n. pain. 3. Repeat colonoscopy in 10 years for colon cancer screening. 4. Follow up in GI clinic in 6 to 8 weeks. Job ID: [id number]
--- NOTE | 2020-08-28 09:21 | OP ---
DATE OF PROCEDURE: 08/28/2020 TITLE OF PROCEDURE: EGD with biopsy. PREPROCEDURE DIAGNOSIS: Recurring epigastric pain despite therapy. POSTPROCEDURE DIAGNOSES: 1. Exam to second portion of duodenum. 2. A 1 to 1.5 cm sliding hiatal hernia. 3. Grade A esophagitis at 37 cm, biopsied. 4. No esophageal ulcers. 5. Mild patchy erythema of the gastric body and antrum, biopsied. 6. No gastric ulcers. 7. Normal duodenum. DESCRIPTION OF PROCEDURE: Written informed consent was obtained. The patient was brought to the endoscopy suite. Total intravenous anesthesia was administered by Dr. Jesus Harper. The patient was placed in the left lateral decubitus position. A bite block was inserted into the mouth. The Pentax video diagnostic gastroscope was introduced into the oral cavity and the esophagus was carefully intubated. The gastroscope was advanced under direct visualization to the second portion of the duodenum. Endoscopic findings revealed grossly normal esophageal motility. A 1 to 1.5 cm sliding hiatal hernia was identified in the lower esophagus. This was associated with grade A esophagitis. Biopsies were obtained for histology. There was no evidence of esophageal ulcer. The stomach was then entered and carefully examined. This included a retroflexed view of the cardia and fundus. Mild patchy erythema with no erosions was identified in the gastric body and antrum. Biopsies were obtained for histology. No ulceration or bleeding was identified. The duodenum from the bulb to the second portion was then inspected and appeared grossly normal. The stomach was decompressed as the endoscope was completely removed from the patient. She was repositioned for the colonoscopy. There were no immediate complications. RECOMMENDATIONS: 1. Await pathology results. 2. Ask the patient to call me in one week for pathology results. 3. Initiate acid suppressive therapy, pantoprazole or esomeprazole 40 mg p.o. q.a.m. for the next 6 to 8 weeks. 4. Follow up in GI clinic in 6 to 8 weeks. 5. Antireflux measures. 6. Continue Levsin sublingual 0.125 mg p.o. q.4 hours p.r.n. Job ID: [id number]
[2020-08-28] MEDS ORDERED: Lidocaine 1% PF 5 ML VIAL ONE (11:15)
[2020-08-28] MEDS ORDERED: PROPOFOL 200 MG/20 ML VIAL ONE (11:15)
== END 2020-08-28 09:15 | disposition home or self-care (01) ==
LOC: SDC 05:58 → EEVIPCON 16:00
PROVIDERS: ATTEND Internal Medicine Gastroenterology
PROC: 0DJD8ZZ Inspection of Lower Intestinal Tract, Via Natural or Artificial Opening Endoscopic (ICD-10-PCS; principal; 2020-08-28)
PROC: 0DB58ZX Excision of Esophagus, Via Natural or Artificial Opening Endoscopic, Diagnostic (ICD-10-PCS; principal; 2020-08-28)
DX: K57.32 Diverticulitis of large intestine without perforation or abscess without bleeding (principal); K64.8 Other hemorrhoids; K62.89 Other specified diseases of anus and rectum; K29.50 Unspecified chronic gastritis without bleeding; K44.9 Diaphragmatic hernia without obstruction or gangrene; K20.0 Eosinophilic esophagitis; K31.89 Other diseases of stomach and duodenum; D64.9 Anemia, unspecified; D89.89 Other specified disorders involving the immune mechanism, not elsewhere classified; I10 Essential (primary) hypertension; E07.9 Disorder of thyroid, unspecified; Z79.899 Other long term (current) drug therapy; Z88.5 Allergy status to narcotic agent; Z88.8 Allergy status to other drugs, medicaments and biological substances; Z91.018 Allergy to other foods
CPT/HCPCS: 88305; 88312; 88313; J2704

== ENCOUNTER 2020-11-11 15:40 | Outpatient (CLI) | payer OTHER ==
--- NOTE | 2020-11-11 17:21 | MRI ---
MRI OF THE RIGHT WRIST WITHOUT CONTRAST: 11/11/20 INDICATION: History of Kienbock's disease of the right wrist and history of lupus and avascular necrosis. COMPARISON: Right wrist MR examination dated 12/26/19 and a radiograph of the right wrist dated 07/10/20. FINDINGS: Again seen are subchondral cyst-like abnormalities associated marrow edema involving the proximal and ulnar aspect of the lunate. No visible internal marrow signal is seen to suggest the presence of ost eonecrosis of the lunate. The TFC is intact. The distal radial ulnar alignment appears slightly posit lauren when compared to the contralateral left wrist on the prior examination. The intrinsic and extrins ic ligaments of the wrist appear intact. Specifically, the lunotriquetral and scapholunate ligaments are intact. Carpal tunnel contents appear within normal limits. The visualized extensor tendons are n ormal appearing. No visible fracture is evident. 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 There is very mild ulnar positive configuration of the DRUJ on the provided radiographs from 07/10/20. POS: [facility]
== END 2020-11-11 15:41 | disposition home or self-care (01) ==
LOC: BICMRI 15:40
PROVIDERS: ATTEND Orthopaedic Surgery Hand Surgery
DX: M93.1 Kienbock's disease of adults (principal); R60.0 Localized edema

== ENCOUNTER 2022-09-27 14:44 | Outpatient (CLI) | payer BC | END 2022-09-27 14:45 | disposition home or self-care (01) | LOC: BICRAD 14:44 | PROVIDERS: ATTEND Nurse Practitioner Family | DX: M25.511 Pain in right shoulder (principal); M19.011 Primary osteoarthritis, right shoulder ==

== ENCOUNTER 2023-01-22 12:14 | Emergency (ER) | payer BC ==
[2023-01-22 13:00] LABS: #Eosinphils 0.1 thou/uL (0.0-0.7); #Monocytes 0.7 thou/uL (0.11-0.59); #Neutrophils 2.7 thou/uL (1.40-6.50); %Basophils 0.7 % (0.0-1.0); %Eosinophils 1.6 % (0.0-10.0); %Lymphocytes 37.2 % (21.0-51.0); %Monocytes 12.1 % (0.0-10.0); %Neutrophils 47.9 % (42.0-75.0); Hemoglobin 11.7 g/dL (12.0-16.0); Mean Corpuscular HGB CONC 31.5 g/dL (32.0-36.0); Mean Corpuscular Hemoglobin 26.2 pg (27.0-31.0); Mean Corpuscular Volume 83.4 fl (78.0-98.0); Mean Platelet Volume 8.6 fL (7.4-10.4); Platelet Count 265 10x3/uL (130-400); RBC Distribution Width 13.6 % (11.5-14.5); Red Blood Cell (RBC) Count 4.46 mill/uL (4.20-5.40); White Blood Cell (WBC) Count 5.7 10x3/uL (4.8-10.8)
[2023-01-22 13:33] LABS: ALT (SGPT) 19 U/L (8-55); AST (SGOT) 23 U/L (5-34); Albumin 4.3 g/dL (3.5-5.0); Alkaline Phosphatase 109 U/L (40-110); Anion Gap 13 mmol/L (10-20); Bilirubin, Total 0.4 mg/dL (0.2-1.2); Calc. Creatinine Clearance 0 mL/min (70-130); Calcium 9.5 mg/dL (7.8-10.44); Carbon Dioxide 22 mmol/L (22-29); Chloride 103 mmol/L (98-107); Estimated GFR 72; Glucose 77 mg/dL (70-105); Lipase 41 U/L (8-78); Potassium 3.9 mmol/L (3.5-5.1); Protein, Total 7.3 g/dL (6.0-8.3); Sodium 134 mmol/L (136-145)
[2023-01-22 13:34] LABS: BUN (Urea Nitrogen) 13 mg/dL (9.8-20.1)
[2023-01-22 13:55] LABS: Bilirubin Negative (Negative); Blood, Urine Negative (Negative); Clarity Clear (Clear); Glucose, Urine (Dipstick) Normal (Negative); Ketone, Urine Negative (Negative); Leukocyte Negative Leu/uL (Negative); Nitrite Negative (Negative); Protein, Urine (Dipstick) Negative (Neg-Trace); Specific Gravity, Urine 1.002 (1.002-1.036); Urobilinogen Normal mg/dL (Less than 2); pH, Urine 5.5 (5.0-9.0)
[2023-01-22] MEDS ORDERED: Aspirin Chewable 81 MG TAB ONE (15:46)
[2023-01-22 15:54] LABS: Free T4 (Free Thyroxine) 1.06 ng/dL (0.70-1.48)
== END 2023-01-22 16:10 | disposition home or self-care (01) ==
LOC: ERS 12:14
DX: R07.89 Other chest pain (principal); R06.00 Dyspnea, unspecified; R10.9 Unspecified abdominal pain; E03.9 Hypothyroidism, unspecified
CPT/HCPCS: 36415; 71045; 74176; 80053; 81003; 83690; 83880; 84439; 84443; 84481; 84484; 85025; 85379; 93005; 94760

== ENCOUNTER 2024-09-06 08:33 | Emergency (ER) | payer BC ==
[2024-09-06] MEDS ORDERED: predniSONE 20 MG TAB ONE (10:28)
[2024-09-06] MEDS ORDERED: Acetaminophen 500 MG TAB ONE (10:28)
== END 2024-09-06 10:39 | disposition home or self-care (01) ==
LOC: ERS 08:33
DX: M32.9 Systemic lupus erythematosus, unspecified (principal); E03.9 Hypothyroidism, unspecified; Z79.890 Hormone replacement therapy
CPT/HCPCS: 99283; J7512

== ENCOUNTER 2024-09-11 12:36 | Outpatient (CLI) | payer BC | END 2024-09-11 12:37 | disposition home or self-care (01) | LOC: MRI 12:36 | PROVIDERS: ATTEND Family Medicine | DX: M25.562 Pain in left knee (principal); M23.92 Unspecified internal derangement of left knee; M22.8X2 Other disorders of patella, left knee ==

== ENCOUNTER 2025-08-20 15:02 | Outpatient (CLI) | payer BC | END 2025-08-20 15:03 | disposition home or self-care (01) | LOC: SCSMRI 15:02 | PROVIDERS: ATTEND Orthopaedic Surgery Hand Surgery | DX: S63.8X1A Sprain of other part of right wrist and hand, initial encounter (principal); M25.831 Other specified joint disorders, right wrist ==

== ENCOUNTER 2025-08-29 11:25 | Day surgery (SDC) | payer BC ==
[2025-08-29] MEDS ORDERED: Heparin 10,000 UNITS/ 10 ML VIAL ONE (11:36)
[2025-08-29] MEDS ORDERED: Lidocaine 1% (PF) 30 ML VIAL ONE (11:36)
[2025-08-29] MEDS ORDERED: Nitroglycerin 50 MG/250 ML BOT 0 ML ONE (11:36)
[2025-08-29] MEDS ORDERED: Iopamidol 370 76% 100 ML VIAL ONE (13:04)
[2025-08-29 14:04] LABS: #Basophils Less than 0.03 10x3/uL (0.0-0.2); #Eosinophils 0.10 10x3/uL (0.0-0.7); #Monocytes 0.39 10x3/uL (0.11-0.59); #Neutrophils 1.84 10x3/uL (1.40-6.50); %Basophils 0.5 % (0.0-1.0); %Eosinophils 2.4 % (0.0-10.0); %Lymphocytes 44.1 % (21.0-51.0); %Monocytes 9.2 % (0.0-10.0); %Neutrophils 43.6 % (42.0-75.0); Hematocrit 35.1 % (36.0-47.0); Hemoglobin 11.4 g/dL (12.0-16.0); Mean Corpuscular Hemoglobin 28.9 pg (27.0-31.0); Mean Corpuscular Volume 89.1 fL (78.0-98.0); Platelet Count 252 10x3/uL (130-400); Red Blood Cell (RBC) Count 3.94 mill/uL (4.20-5.40); White Blood Cell (WBC) Count 4.22 10x3/uL (4.8-10.8)
[2025-08-29 14:21] LABS: ALT (SGPT) 18 U/L (Less than 34); AST (SGOT) 31 U/L (11-34); Albumin 4.0 g/dL (3.1-4.5); Alkaline Phosphatase 123 U/L (40-110); Anion Gap 12 mmol/L (10-20); BUN (Urea Nitrogen) 7 mg/dL (9.8-20.1); Bilirubin, Total 0.6 mg/dL (0.3-1.2); Calc. Creatinine Clearance 0 mL/min (70-130); Calcium 9.1 mg/dL (7.8-10.44); Carbon Dioxide 25 mmol/L (22-29); Cardiac Risk 2.8 (Less than 4.5); Chloride 109 mmol/L (98-107); Cholesterol 162 mg/dl (< 200 Desired); Globulin 2.7 g/dL (2.4-3.5); Glucose 78 mg/dL (70-105); HDL Cholesterol 58 mg/dL (>60 Neg Risk); LDL Cholesterol, Calculated 93 mg/dL; Potassium 4.2 mmol/L (3.5-5.1); Sodium 142 mmol/L (136-145); Triglycerides 56 mg/dL (Less than 150)
[2025-08-29] MEDS ORDERED: Hyoscyamine SL 0.125 MG TAB ONE (17:27)
== END 2025-08-29 18:45 | disposition home or self-care (01) ==
LOC: SDC 11:25
PROVIDERS: ATTEND Internal Medicine Cardiovascular Disease
PROC: 4A023N7 Measurement of Cardiac Sampling and Pressure, Left Heart, Percutaneous Approach (ICD-10-PCS; principal; 2025-08-29)
DX: R07.9 Chest pain, unspecified (principal); R94.31 Abnormal electrocardiogram [ECG] [EKG]; E07.9 Disorder of thyroid, unspecified; Z90.49 Acquired absence of other specified parts of digestive tract; Z88.5 Allergy status to narcotic agent; Z88.6 Allergy status to analgesic agent; Z88.8 Allergy status to other drugs, medicaments and biological substances; Z91.018 Allergy to other foods; Z79.890 Hormone replacement therapy
CPT/HCPCS: 80053; 80061; 85025; 93458; 99152; C1769; C1887; C1894; J1644; J2003; J2250; J3010; Q9967